=== PATIENT | female | born 1995 | race Caucasian/White ===

== ENCOUNTER 2017-04-12 06:27 | Inpatient (IN) | payer MEDICAID ==
[2017-04-12] VITALS (26 sets, daily range): BP systolic 99–144; BP diastolic 51–81; PULSE 61–91; TEMP 97.3–98.2
[~2017-04-12] VITALS: Ht 165.1 cm; Wt 73.2 kg
[~2017-04-12 06:27] MED LIST: MOTRIN 600600 MG/TAB PO; PRENATAL1 TA1
[2017-04-12] MEDS ORDERED: PERCOCET 325 MG1 TA2 PO (09:53)
[2017-04-12] MEDS ORDERED: MOTRIN 800800 MG/TAB PO (09:53)
[2017-04-12 10:06] LABS: BASO % 0.3 % (0.0-2.0); EOS # 0.1 (0.0-0.7); EOS % 0.5 % (0-4.0); GRAN # 7.2 (1.4-6.5); GRAN % 73.1 % (42.2-75.2); LYMPH # 1.9 (1.2-3.4); LYMPH % 19.1 % (20.0-51.0); MEAN CELL VOLUME 92 fl (80.0-100.0); MEAN CORPUSCULAR HEMOGLOBIN 31 pg (27.0-31.0); MEAN CORPUSCULAR HGB CONC 33 g/dl (33.0-37.0); MEAN PLATELET VOLUME 10.2 fl (7.4-10.4); MONO # 0.6 (0.1-0.6); MONO % 6.5 % (1.7-9.3); PLATELET COUNT 203 K/mm3 (130-400); RED BLOOD COUNT 3.93 M/mm3 (4.10-5.30); WHITE BLOOD COUNT 9.9 K/mm3 (4.8-10.8)
[2017-04-12 10:08] LABS: HEMATOCRIT 36.1 % (37.0-47.0)
[2017-04-13 04:15] VITALS: BP 104/67; PULSE 68; TEMP 98.7
[2017-04-13 08:00] VITALS: BP 97/63; PULSE 73; TEMP 97.5
[2017-04-13 12:00] VITALS: BP 101/61; PULSE 70; TEMP 97.5
== END 2017-04-13 16:48 | disposition home or self-care (01) | DRG 775 ==
LOC: LDRO 06:27 → LDR 09:30 → OB 09:30 → LDRO 04-20 10:17
PROVIDERS: Obstetrics & Gynecology
PROC: 10E0XZZ Delivery of Products of Conception, External Approach (ICD-10-PCS; principal; 2017-04-12)
DX: O36.0130 Maternal care for anti-D [Rh] antibodies, third trimester, not applicable or unspecified (principal); O75.89 Other specified complications of labor and delivery; O26.843 Uterine size-date discrepancy, third trimester; O66.0 Obstructed labor due to shoulder dystocia; Z3A.38 38 weeks gestation of pregnancy; Z37.0 Single live birth
CPT/HCPCS: J2210; J2405; J2590; J2795; J7120